=== PATIENT | female | born 1980 | race Caucasian/White ===

== ENCOUNTER 2017-06-07 06:19 | Day surgery (SDC) | payer OTHER ==
[2017-06-07] MEDS ORDERED: ROCURONIUM 50 MG INJ (07:00)
[2017-06-07] MEDS ORDERED: CEFAZOLIN 1 GM INJ (07:00)
[2017-06-07] MEDS ORDERED: LIDOCAINE 1% (MPF) 30 ML INJ (09:26)
[2017-06-07] MEDS ORDERED: morphine SULFATE/PF (10 MG/10 ML) INJ (09:26)
[2017-06-07] MEDS ORDERED: ROPIVACAINE 0.5 % 30 ML VIAL (09:26)
[2017-06-07] MEDS ORDERED: NEOMYC/POLYMYX/BACIT 30 GM OINT (09:26)
[2017-06-07] MEDS ORDERED: FENTAnyl 50 MCG/ML VIAL (10:45)
[2017-06-07] MEDS ORDERED: PROPOFOL 20 ML (10:45)
[2017-06-07] MEDS ORDERED: SUGAMMADEX SODIUM 200 MG/2 ML VIAL IV (10:45)
[2017-06-07] MEDS ORDERED: SUCCINYLCHOLINE CHLORIDE 100 MG/5 ML SYG IV (10:45)
[2017-06-07] MEDS ORDERED: CLINDAMYCIN 900 MG/D5W (PMX) 50 ML IVPB (10:45)
[2017-06-07] MEDS ORDERED: LIDOCAINE 100 MG SYRINGE (10:45)
[2017-06-07] MEDS: ROPIVACAINE 0.5 % 30 ML VIAL INJ (10:48)
[2017-06-07] MEDS: LIDOCAINE 1% (MPF) 30 ML INJ INJ (10:49)
[2017-06-07] MEDS ORDERED: METOCLOPRAMIDE 10 MG INJ IV (11:00)
[2017-06-07] MEDS ORDERED: DIPHENHYDRAMINE 50 MG INJ IV (11:00)
[2017-06-07] MEDS ORDERED: FENTAnyl 50 MCG/ML VIAL IV ×2 (11:00)
[2017-06-07] MEDS ORDERED: MEPERIDINE 25 MG INJ IV (11:00)
[2017-06-07] MEDS ORDERED: ONDANSETRON 4 MG INJ IV (11:00)
[2017-06-07] MEDS ORDERED: HYDROmorphONE (0.2 MG/ML) 10ML SYG IV ×3 (11:00)
[2017-06-07] MEDS ORDERED: morphine 2 MG INJ IV (11:30)
== END 2017-06-07 12:49 | disposition home or self-care (01) ==
LOC: SDS 06:19
DX: M23.222 Derangement of posterior horn of medial meniscus due to old tear or injury, left knee (principal); M23.201 Derangement of unspecified lateral meniscus due to old tear or injury, left knee; M94.262 Chondromalacia, left knee; I10 Essential (primary) hypertension; M32.9 Systemic lupus erythematosus, unspecified
CPT/HCPCS: 29880; 82306; 84703